=== PATIENT | female | born 1975 | race Caucasian/White ===

== ENCOUNTER 2023-01-07 12:00 | Outpatient (RCR) | payer OTHER, SELFPAY | END 2023-02-10 11:31 | disposition home or self-care (01) | LOC: HO.PT 12:00 | PROVIDERS: Visit Provider Internal Medicine Gastroenterology | DX: M99.05 Segmental and somatic dysfunction of pelvic region (principal) | CPT/HCPCS: 97110; 97112; 97140; 97162 ==